=== PATIENT | male | born 1995 | race Caucasian/White ===

== ENCOUNTER 2018-06-30 18:58 | Emergency (ER) | payer OTHER ==
[2018-06-30 19:14] VITALS: BP 117/73; PULSE 75; RESP 18; TEMP 97.9; O2SAT 100
[2018-06-30] MEDS ORDERED: LIDOCAINE 1% W/EPI MPF 30 ML SOL INFIL ONE (19:21)
[2018-06-30] MEDS ORDERED: LIDOCAINE 1% W/EPI MPF 30 ML SOL ONE (19:22)
[2018-06-30] MEDS ORDERED: TDAP VACCINE 0.5 ML SUS IM ONE ×2 (19:25→22:21)
[2018-06-30] MEDS ORDERED: BACITRACIN 500 U/GM OIN TOP ONE ×2 (19:41→19:42)
== END 2018-06-30 20:01 | disposition home or self-care (01) | DRG 605 ==
LOC: ED 18:58
DX: S61.019A Laceration without foreign body of unspecified thumb without damage to nail, initial encounter (principal)
CPT/HCPCS: 90471; 90715; 99282; A9270-GY